=== PATIENT | female | born 1940 | race Caucasian/White ===

== ENCOUNTER 2016-11-25 20:04 | Inpatient (IN) | payer MEDICARE ==
[~2016-11-25] VITALS: Ht 170.2 cm; Wt 77.0 kg
[~2016-11-25 20:04] MED LIST: CHOL1CAP6 PO; CITRTAB7 PO; ENOX40P SQ; FISH1000 PO; LANO0.2510 PO; PROBCAP PO; TAB-TAB PO; VITA500T10 PO; WARF-20 PO
[2016-11-25 20:10] VITALS: BP 112/65; PULSE 88; RESP 16; TEMP 97.6; O2SAT 98
[2016-11-25] MEDS ORDERED: SODIUM CHLORIDE 0.9% FLUSH 10 ML FLUSH IV FLUSH PRN (20:30)
[2016-11-25] MEDS ORDERED: ONDANSETRON HCL 4 MG/2 ML VIAL IVP ONE (20:30)
[2016-11-25] MEDS ORDERED: MORPHINE SULFATE 4 MG/ML INJ IV PUSH ONE (20:30)
--- NOTE | 2016-11-25 20:38 | PD ---
HPI . Abdominal pain Chief Complaint: GI Complaint Time Seen by Provider: 20:18 Travel History International Travel<30 days: No Contact w/Intl Traveler<30days: No History of Present Illness HPI Patient presents with the chief complaint of lower abdominal pain. Onset was this morning. She states that it started by just feeling that her pants were too tight. She has become progressively more bloated feeling as the day has gone on. She has developed nausea and vomited shortly after presentation to us. She states her last normal bowel movement was this evening. She describes her abdominal pain as spasms. PFSH Past Medical History Arthritis: No Cancer: No Cardiovascular Problems: Yes (ATRIAL FIBRILLATION) High Cholesterol: Yes Cerebrovascular Accident: Yes (mar 2012) Diabetes: No Diverticulitis: Yes Endocrine: No Gastrointestinal Disorders: Yes ( HISTORY ILEOSTOMY, COLOSTOMY - CLOSED 08/14; DIVERTICULITIS) GERD: Yes Genitourinary: No Hepatitis: No Hiatal Hernia: No Immune Disorder: No Musculoskeletal: No Neurologic: Yes (STROKE 03/15) Psychiatric: No Reproductive: No Respiratory: No Thyroid Disease: No Ulcer: No Menopausal: Yes Past Surgical History Abdominal Surgery: Yes (APPENDECTOMY; 03/15 COLON SURGERY-ILEOSTOMY,COLOSTOMY; COLON RESECTION 2012) AICD: No Appendectomy: Yes Body Medical Devices: NONE Joint Replacement: No Neurologic Surgery: Yes Pacemaker: No Other Surgery: Yes Social History Alcohol Use: Yes (GLASS WINE DAILY) Tobacco Use: No Substance Use: No Allergies-Medications (Allergen,Severity, Reaction): Coded Allergies: *MDRO Multi-Drug Resistant Organism (Unverified Allergy, Unknown, 03/07/14) MRSA 2013 Reported Meds & Prescriptions Reported Meds & Active Scripts Active Reported Lovenox (Enoxaparin Sodium) 40 Mg/0.4 Ml Inj 40 Mg SQ BID 5 Days UNGRADUATED PREFILLED SYRINGE USE UNTIL INR 2.0 Probiotic Colon Support (Probiotic Product) Support Cap 1 Tab PO DAILY Warfarin Sodium 4 mg (Warfarin Sodium) 4 Mg Tab 1 Tab PO DAILY@1600 Vitamin C (Ascorbic Acid) 500 Mg Tab 500 Mg PO DAILY Vitamin D-3 (Cholecalciferol) 1,000 Unit Tab 1,000 Unit PO DAILY Multivitamin (Multivitamins) 1 Tab Tab 1 Tab PO DAILY Citracal + D3 Maximum (Calcium Citrate/Cholecalciferol) Tab 1 Tab PO DAILY Fish Oil 1,000 Mg Cap 1,000 Mg PO DAILY Lanoxin (Digoxin) 0.25 Mg Tab 0.25 Mg PO DAILY Review of Systems Except as stated in HPI: all other systems reviewed are Neg General / Constitutional: No: Fever, Chills Respiratory: No: Shortness of Breath Gastrointestinal: Positive: Nausea, Vomiting, Abdominal Pain, No: Diarrhea, Constipation Genitourinary: No: Urgency, Frequency, Dysuria Physical Exam Narrative GENERAL: Patient is awake and alert. She doesn't look like she feels very well. SKIN: Warm and dry. HEAD: Atraumatic. Normocephalic. EYES: Pupils equal and round. Extraocular movements are intact. ENT: No nasal bleeding or discharge. Mucous membranes pink and moist. NECK: Trachea midline. Neck is supple. CARDIOVASCULAR: Regular rate and rhythm. Heart sounds are normal. RESPIRATORY: No accessory muscle use. Lungs clear with full air movement throughout. GASTROINTESTINAL: Abdomen soft. Diffuse lower abdominal tenderness. Abdomen is distended. MUSCULOSKELETAL: No obvious deformities. No edema. NEUROLOGICAL: Awake and alert. No obvious cranial nerve deficits. Motor grossly within normal limits. Normal speech. PSYCHIATRIC: Appropriate mood and affect; insight and judgment normal. Data Data Last Documented VS Vital Signs Date Time Temp Pulse Resp B/P Pulse Ox O2 Delivery O2 Flow Rate FiO2 11/25/16 21:24 18 11/25/16 20:10 97.6 88 112/65 98 Orders Complete Blood Count With Diff (11/25/16 20:20) Comprehensive Metabolic Panel (11/25/16 20:20) Lipase (11/25/16 20:20) Lactic Acid (11/25/16 20:20) Urinalysis - C+S If Indicated (11/25/16 20:20) Ct Abd/Pel W Iv Contrast(Rout) (11/25/16 20:20) Iv Access Insert/Monitor (11/25/16 20:20) Morphine Inj (Morphine Inj) (11/25/16 20:30) Ondansetron Inj (Zofran Inj) (11/25/16 20:30) Sodium Chloride 0.9% Flush (Ns Flush) (11/25/16 20:30) Electrocardiogram (11/25/16 20:20) Iohexol 350 Inj (Omnipaque 350 Inj) (11/25/16 21:32) Insert Ng Tube (11/25/16 22:15) Consent (11/25/16 22:27) Ondansetron Inj (Zofran Inj) (11/25/16 22:45) Propofol 200 Mg/20 Ml Inj (Diprivan 200 (11/25/16 23:00) Ct Abd/Pel W/O Iv Contrast (11/25/16 23:24) Labs Laboratory Tests Test 11/25/16 20:40 White Blood Count 12.0 TH/MM3 Red Blood Count 5.13 MIL/MM3 Hemoglobin 14.3 GM/DL Hematocrit 44.8 % Mean Corpuscular Volume 87.3 FL Mean Corpuscular Hemoglobin 27.8 PG Mean Corpuscular Hemoglobin 31.9 % Concent Red Cell Distribution Width 14.2 % Platelet Count 301 TH/MM3 Mean Platelet Volume 9.2 FL Neutrophils (%) (Auto) 73.3 % Lymphocytes (%) (Auto) 16.5 % Monocytes (%) (Auto) 4.7 % Eosinophils (%) (Auto) 1.9 % Basophils (%) (Auto) 3.6 % Neutrophils # (Auto) 8.8 TH/MM3 Lymphocytes # (Auto) 2.0 TH/MM3 Monocytes # (Auto) 0.6 TH/MM3 Eosinophils # (Auto) 0.2 TH/MM3 Basophils # (Auto) 0.4 TH/MM3 CBC Comment DIFF FINAL Differential Comment Sodium Level 142 MEQ/L Potassium Level 3.9 MEQ/L Chloride Level 107 MEQ/L Carbon Dioxide Level 26.9 MEQ/L Anion Gap 8 MEQ/L Blood Urea Nitrogen 25 MG/DL Creatinine 0.88 MG/DL Estimat Glomerular Filtration 63 ML/MIN Rate Random Glucose 111 MG/DL Lactic Acid Level 0.8 mmol/L Calcium Level 9.5 MG/DL Total Bilirubin 0.5 MG/DL Aspartate Amino Transf 19 U/L (AST/SGOT) Alanine Aminotransferase 29 U/L (ALT/SGPT) Alkaline Phosphatase 78 U/L Total Protein 7.3 GM/DL Albumin 3.4 GM/DL Lipase 190 U/L MDM Medical Decision Making Medical Screen Exam Complete: Yes Emergency Medical Condition: Yes Medical Record Reviewed: Yes (her medical history is significant for diverticulitis, previous ileus, atrial fibrillation, asthma. Past surgical history is significant for appendectomy, ventral hernia repair and lysis of adhesions.) Interpretation(s) EKG shows a sinus rhythm with no ST segment elevation or depression. Differential Diagnosis Differential diagnosis of abdominal pain includes but is not limited to gastritis, pancreatitis, hepatitis, gastroenteritis, gallbladder disease, constipation, urinary retention, UTI, peptic ulcer disease, diverticulitis or appendicitis Narrative Course This patient presents with abdominal pain and bloating which started earlier today and which is now associated with nausea followed by vomiting. She reports a normal bowel movement earlier this evening. Nonetheless, my #1 concern is bowel obstruction. An IV has been started. She will be sent for a CT. EKG has been done and basic labs ordered. CBC & BMP Diagram 11/25/16 20:40 Liver function studies are normal. Lipase is normal. Lactic Acid is 0.8. CT: 1. Mildly dilated small bowel loops leading up to a hernia within the right lower anterior abdominal wall which demonstrates a minimal stranding. Surgical consultation 81. 2. Diverticulosis without diverticulitis. 3. Hepatic and renal densities likely cysts. 4. Partially calcified density anterior to the liver along the left lobe, likely benign. I have done conscious sedation. While the patient was sedated, NG tube was placed. On repeat examination, the patient reports her abdominal pain is improved. She does not seem to be as tender. However, she has been medicated with both morphine and propofol. Care is being turned over to Dr. Broussard pending the repeat CT. Procedures Procedure Narrative After the risks and benefits were discussed the following procedure was performed: MODERATE SEDATION: The patient was placed on a telemetry monitor and pulse oximetry. An ambu bag and suction was immediately available at bedside. The patient was monitored by the nurse and respiratory therapy. Oxygen saturation, heart rate and blood pressure were monitored. Procedural sedation was acheived using propofol. The patient was observed until awake and alert. Procedural Sedation time in attendance was 15 minutes. HERNIA REDUCTION: Prior to the attempted reduction, the patient was placed in Trendelenburg with ice on the hernia. Following correct patient identification and confirmation of the appropriate site, the patient was given conscious sedation. Following adequate sedation on the hernia was reduced with compression. Patient tolerated procedure well without complication. Physician Communication Physician Communication Case discussed with Dr. Gomez. He has asked for a repeat CT following reduction of ventral hernia. Disposition will depend upon the repeat CT. That is, if the hernia has not been adequately reduced, he will take her to surgery tonight. If the hernia is adequately reduced, she will be admitted to medicine with surgical consultation. Diagnosis Primary Impression: Small bowel obstruction Additional Impression: Ventral hernia Qualified Code: K43.6 - Ventral hernia with obstruction and without gangrene Admitting Information Admitting Physician Requests: Admit Condition: Stable Tg Rodrigues MD Nov 25, 2016 20:38
[2016-11-25 20:54] LABS: AUTOMATED NEUTROPHIL # 8.8 TH/MM3 (1.8-7.7); BASOPHIL # 0.4 TH/MM3 (0-0.2); BASOPHIL % 3.6 % (0.0-2.0); EOSINOPHIL # 0.2 TH/MM3 (0-0.4); EOSINOPHIL % 1.9 % (0.0-4.0); HEMATOCRIT 44.8 % (35.0-46.0); LYMPH % 16.5 % (9.0-44.0); MEAN CELL VOLUME 87.3 FL (80.0-100.0); MEAN CORPUSCULAR HEMOGLOBIN 27.8 PG (27.0-34.0); MEAN CORPUSCULAR HGB CONC 31.9 % (32.0-36.0); MONO % 4.7 % (0.0-8.0); NEUT % 73.3 % (16.0-70.0); PLATELET COUNT 301 TH/MM3 (150-450); RED BLOOD COUNT 5.13 MIL/MM3 (4.00-5.30); RED CELL DISTRIBUTION WIDTH 14.2 % (11.6-17.2)
[2016-11-25 20:56] LABS: HEMO FLAGS DIFF FINAL
[2016-11-25 21:03] LABS: CHLORIDE 107 MEQ/L (98-107); POTASSIUM 3.9 MEQ/L (3.5-5.1); SODIUM (NA) 142 MEQ/L (136-145)
[2016-11-25 21:07] LABS: ANION GAP 8 MEQ/L (5-15); BICARBONATE 26.9 MEQ/L (21.0-32.0); BLOOD UREA NITROGEN 25 MG/DL (7-18)
[2016-11-25 21:10] LABS: ALT (GPT) 29 U/L (10-53); AST (GOT) 19 U/L (15-37); GLOMERULAR FILTRATION RATE 63 ML/MIN (>89)
[2016-11-25 21:12] LABS: TOTAL BILIRUBIN ADULT 0.5 MG/DL (0.2-1.0)
[2016-11-25 21:13] LABS: ALKALINE PHOSPHATASE 78 U/L (45-117)
[2016-11-25 21:30] VITALS: BP 144/58; PULSE 80; RESP 18; O2SAT 95
[2016-11-25] MEDS ORDERED: IOHEXOL 350 MG/ML 10 ML VIAL (for RAD DIAG) IV ONE (21:32)
--- NOTE | 2016-11-25 22:10 | RADRPT ---
EXAM DATE/TIME: 11/25/2016 21:19 [facility] COMPARISON: CT ABDOMEN & PELVIS W CONTRAST, September 24, 2013, 4:10. INDICATIONS : Lower abdominal pain. Nausea. IV CONTRAST: 100 cc Omnipaque 350 (iohexol) IV ORAL CONTRAST: No oral contrast ingested. RADIATION DOSE: 17.49 CTDIvol (mGy) MEDICAL HISTORY : Diverticulitis. Gastroesophageal reflux disease. Cerebrovascular disease. SURGICAL HISTORY : Appendectomy. Colon resection. ENCOUNTER: Initial ACUITY: 1 day PAIN SCALE: 8/10 LOCATION: Bilateral lower quadrant TECHNIQUE: Volumetric scanning of the abdomen and pelvis was performed. Using automated exposure control and ad justment of the mA and/or kV according to patient size, radiation dose was kept as low as reasonably achievable to obtain optimal diagnostic quality images. DICOM format image data is available electro nically for review and comparison. FINDINGS: LOWER LUNGS: The visualized lower lungs are clear. LIVER: Homogeneous density without lesion. There is no dilation of the biliary tree. No calcified gallston es. Hepatic low densities. Small calcified density anterior to the liver capsule along the left lobe. SPLEEN: Normal size without lesion. PANCREAS: Within normal limits. KIDNEYS: Normal in size and shape. There is no mass, stone or hydronephrosis. Bilateral renal cysts. ADRENAL GLANDS: Within normal limits. VASCULAR: There is no aortic aneurysm. BOWEL/MESENTERY: There are some mildly prominent small bowel loops leading up to a hernia within the anterior abdomina l wall just to the right of midline inferior to the umbilicus. There is minimal stranding within the hernia. Scattered diverticulosis.. There is no free intraperitoneal air or fluid. ABDOMINAL WALL: Small hernia containing small bowel loops in the infraumbilical region to the right of midline. Small fat-containing abdominal wall hernia more superiorly in the right abdomen.. RETROPERITONEUM: There is no lymphadenopathy. BLADDER: No wall thickening or mass. REPRODUCTIVE: Within normal limits. INGUINAL: There is no lymphadenopathy or hernia. MUSCULOSKELETAL: Within normal limits for patient age. CONCLUSION: 1. Mildly dilated small bowel loops leading up to a hernia within the right lower anterior abdominal wall which demonstrates a minimal stranding. Surgical consultation 81. 2. Diverticulosis without diverticulitis. 3. Hepatic and renal densities likely cysts. 4. Partially calcified density anterior to the liver along the left lobe, likely benign. Francis Cho MD on November 25, 2016 at 22:03 Board Certified Radiologist. This report was verified electronically.
[2016-11-25] MEDS ORDERED: ONDANSETRON HCL 4 MG/2 ML VIAL IV PUSH ONE (22:45)
[2016-11-25 23:00] VITALS: O2SAT 97
[2016-11-25] MEDS ORDERED: PROPOFOL 200 MG/20 ML AMP IV ONE (23:00)
[2016-11-26] VITALS (13 sets, daily range): BP systolic 140–174; BP diastolic 60–71; PULSE 70–81; RESP 16–19; TEMP 97.1–98.5; O2SAT 92–97
--- NOTE | 2016-11-26 00:20 | RADRPT ---
EXAM DATE/TIME: 11/25/2016 23:48 [facility] COMPARISON: CT ABDOMEN & PELVIS W CONTRAST, November 25, 2016, 21:19. INDICATIONS : Post hernia reduction. Obstruction. ORAL CONTRAST: No oral contrast ingested. RADIATION DOSE: 17.77 CTDIvol (mGy) MEDICAL HISTORY : Diverticulitis. Gastroesophageal reflux disease. Cerebrovascular disease. SURGICAL HISTORY : Appendectomy. Colon resection. ENCOUNTER: Subsequent ACUITY: 1 day PAIN SCALE: 8/10 LOCATION: Right lower quadrant TECHNIQUE: Volumetric scanning of the abdomen and pelvis was performed. Using automated exposure control and ad justment of the mA and/or kV according to patient size, radiation dose was kept as low as reasonably achievable to obtain optimal diagnostic quality images. DICOM format image data is available electro nically for review and comparison. FINDINGS: LOWER LUNGS: The visualized lower lungs are clear. LIVER: Homogeneous density without concerning lesion. There are 3 cysts in the liver measuring up to 2.6 cm. There is no dilation of the biliary tree. No calcified gallstones. SPLEEN: Normal size without lesion. PANCREAS: Within normal limits. KIDNEYS: Normal in size and shape. There is no mass, stone, or hydronephrosis. There is a stable left renal c yst. ADRENAL GLANDS: Within normal limits. VASCULAR: There is no aortic aneurysm. There is severe atherosclerotic disease. BOWEL/MESENTERY: Stomach demonstrates no abnormality. Nasogastric tube tip is in the proximal stomach. Proximal small bowel is normal. There is a segment of small bowel which again extends into a right lower quadrant an terior abdominal wall hernia just to the right of midline. The small bowel proximal to this is mildly distended measuring up to 2.3 cm. There is colonic diverticulosis. There is been prior surgery at th e colorectal junction. No free air or free fluid. ABDOMINAL WALL: Stable anterior abdominal wall hernia in the right lower quadrant. RETROPERITONEUM: There is no lymphadenopathy. BLADDER: No wall thickening or mass. REPRODUCTIVE: Within normal limits. INGUINAL: There is no lymphadenopathy or hernia. MUSCULOSKELETAL: There are degenerative changes of the spine. CONCLUSION: 1. The right lower quadrant anterior abdominal wall hernia is stable. It still contains a segment of small bowel with mild dilatation of the small bowel proximal to this area. 2. Otherwise, stable exam. Portillo Baker MD on November 26, 2016 at 0:12 Board Certified Radiologist. This report was verified electronically.
[2016-11-26] MEDS ORDERED: DIGO0.12 PO (00:32)
[2016-11-26] MEDS ORDERED: WARF-20 PO (00:33)
[2016-11-26] MEDS ORDERED: VITA100036 PO (00:34)
[2016-11-26] MEDS ORDERED: VITA250T3 PO (00:34)
[2016-11-26] MEDS ORDERED: CITRTAB7 PO (00:35)
[2016-11-26] MEDS ORDERED: LACTCAP8 PO (00:35)
[2016-11-26] MEDS ORDERED: OMEGCAP PO (00:36)
[2016-11-26] MEDS ORDERED: MULTTAB67 PO (00:36)
--- NOTE | 2016-11-26 00:38 | PD ---
Physical Exam Narrative Patient was seen by ED physician and signed out to me. Data Data Last Documented VS Vital Signs Date Time Temp Pulse Resp B/P Pulse Ox O2 Delivery O2 Flow Rate FiO2 11/25/16 23:00 97 2.00 11/25/16 21:24 18 11/25/16 20:10 97.6 88 112/65 Orders Complete Blood Count With Diff (11/25/16 20:20) Comprehensive Metabolic Panel (11/25/16 20:20) Lipase (11/25/16 20:20) Lactic Acid (11/25/16 20:20) Urinalysis - C+S If Indicated (11/25/16 20:20) Ct Abd/Pel W Iv Contrast(Rout) (11/25/16 20:20) Iv Access Insert/Monitor (11/25/16 20:20) Morphine Inj (Morphine Inj) (11/25/16 20:30) Ondansetron Inj (Zofran Inj) (11/25/16 20:30) Sodium Chloride 0.9% Flush (Ns Flush) (11/25/16 20:30) Electrocardiogram (11/25/16 20:20) Iohexol 350 Inj (Omnipaque 350 Inj) (11/25/16 21:32) Insert Ng Tube (11/25/16 22:15) Consent (11/25/16 22:27) Ondansetron Inj (Zofran Inj) (11/25/16 22:45) Propofol 200 Mg/20 Ml Inj (Diprivan 200 (11/25/16 23:00) Ct Abd/Pel W/O Iv Contrast (11/25/16 23:24) Prothrombin Time / Inr (Pt) (11/26/16 00:55) Act Partial Throm Time (Ptt) (11/26/16 00:55) Digoxin (11/26/16 00:55) Admit Order (Ed Use Only) (11/26/16 01:14) Labs Laboratory Tests Test 11/25/16 11/26/16 20:40 01:15 White Blood Count 12.0 TH/MM3 Red Blood Count 5.13 MIL/MM3 Hemoglobin 14.3 GM/DL Hematocrit 44.8 % Mean Corpuscular Volume 87.3 FL Mean Corpuscular Hemoglobin 27.8 PG Mean Corpuscular Hemoglobin 31.9 % Concent Red Cell Distribution Width 14.2 % Platelet Count 301 TH/MM3 Mean Platelet Volume 9.2 FL Neutrophils (%) (Auto) 73.3 % Lymphocytes (%) (Auto) 16.5 % Monocytes (%) (Auto) 4.7 % Eosinophils (%) (Auto) 1.9 % Basophils (%) (Auto) 3.6 % Neutrophils # (Auto) 8.8 TH/MM3 Lymphocytes # (Auto) 2.0 TH/MM3 Monocytes # (Auto) 0.6 TH/MM3 Eosinophils # (Auto) 0.2 TH/MM3 Basophils # (Auto) 0.4 TH/MM3 CBC Comment DIFF FINAL Differential Comment Sodium Level 142 MEQ/L Potassium Level 3.9 MEQ/L Chloride Level 107 MEQ/L Carbon Dioxide Level 26.9 MEQ/L Anion Gap 8 MEQ/L Blood Urea Nitrogen 25 MG/DL Creatinine 0.88 MG/DL Estimat Glomerular Filtration 63 ML/MIN Rate Random Glucose 111 MG/DL Lactic Acid Level 0.8 mmol/L Calcium Level 9.5 MG/DL Total Bilirubin 0.5 MG/DL Aspartate Amino Transf 19 U/L (AST/SGOT) Alanine Aminotransferase 29 U/L (ALT/SGPT) Alkaline Phosphatase 78 U/L Total Protein 7.3 GM/DL Albumin 3.4 GM/DL Lipase 190 U/L Prothrombin Time 22.7 SEC Prothromb Time International 2.0 RATIO Ratio Activated Partial 36.1 SEC Thromboplast Time [facility] Supervised Visit with JOSÉ LUIS: No Narrative Course INR 2.0. Patient was given vitamin K 10 mg subcutaneous. Repeat INR in a.m. Diagnosis Primary Impression: Small bowel obstruction Additional Impression: Ventral hernia Qualified Code: K43.6 - Ventral hernia with obstruction and without gangrene Condition: Stable Hector Broussard MD Nov 26, 2016 00:38
[2016-11-26] MEDS ORDERED: SODIUM CHLORIDE 0.9% FLUSH 10 ML FLUSH IVF PRN (01:30)
[2016-11-26] MEDS ORDERED: ONDANSETRON HCL 4 MG/2 ML VIAL IV PRN (01:30)
[2016-11-26 02:02] LABS: APTT (PATIENT) 36.1 SEC (24.3-30.1); PROTHROMBIN TIME - PATIENT 22.7 SEC (9.8-11.6)
[2016-11-26] MEDS ORDERED: PHYTONADIONE 10 MG/ML VIAL SQ ONE (02:15)
[2016-11-26] MEDS: SODIUM CHLOR 0.9% 1000 ML INJ 1,000 ML IV SCH ×3 (02:28→21:24)
[2016-11-26 04:16] LABS: BLOOD, URINE NEG (NEG); GLUCOSE,URINE NEG (NEG); KETONE, URINE 15 mg/dL (NEG); NITRITE,URINE NEG (NEG); PH, URINE 5.5 (5.0-8.5)
[2016-11-26 04:28] LABS: URINE COLOR YELLOW (YELLW/STRAW)
[2016-11-26 04:29] LABS: BACTERIA, URINE OCC /hpf; COMMENT (UR) CULT NOT INDICATED; CULTURE IF INDICATED CULT NOT INDICATED; MUCUS URINE OCC /lpf (OCC); SQUAMOUS EPITHELIAL CELL URINE 0-5 /hpf (0-5)
[2016-11-26] MEDS: SODIUM CHLORIDE 0.9% FLUSH 10 ML FLUSH IV FLUSH SCH ×2 (07:40→21:00)
--- NOTE | 2016-11-26 09:16 | PD.CONS ---
HPI Service General Surgery Consult Requested By Reason for Consult ventral hernia causing sbo Primary Care Physician Lanre Gamble MD History of Present Illness The patient is a 76-year-old female who developed abdominal distention and pain yesterday associated with nausea and vomiting. She noticed a bulge in her right lower abdomen. She actually felt a bulge about 2 weeks ago when she was doing some activity. She has h/o ex lap, sigmoid resection, Edwin's, mucous fistula, and diverting ileostomy for obstructing perforated diverticulitis with secondary cecal perforation in 2011. She subsequently underwent reversal. She has undergone two separate ventral hernia repairs with mesh in 2013. At some point she had a wound infection, although I do not think this was associated with mesh. She was evaluated in the emergency department and noted to have leukocytosis and a CT scan of the abdomen and pelvis showed a partial small bowel obstruction with incarcerated ventral hernia with small bowel. NG tube was placed and attempt was made for reduction. Unfortunately, the hernia remained in place on follow-up CT. She has a history of atrial fibrillation and CVA and is anticoagulated on warfarin. Review of Systems Constitutional: DENIES: Fever, Chills Eyes: DENIES: Eye inflammation, Eye pain Ears, nose, mouth, throat: DENIES: Oral lesions, Throat pain Respiratory: DENIES: Cough, Shortness of breath Cardiovascular: DENIES: Chest pain, Palpitations Gastrointestinal: COMPLAINS OF: Abdominal pain, Nausea, Vomiting Musculoskeletal: DENIES: Stiffness, Joint Swelling Integumentary: DENIES: Pruritus, Rash Neurologic: DENIES: Paresthesias, Seizures Past Family Social History Past Medical History CVA Atrial fibrillation Perforated sigmoid diverticulitis with secondary cecal perforation Past Surgical History Appendectomy as a child Exploratory laparotomy with sigmoid resection as above Colostomy and ileostomy reversal Ventral hernia repair 2 with mesh Reported Medications Reported Meds & Active Scripts Active Reported Multiple Vitamin 1 Tab 1 Tab PO DAILY [place]-3 Fish Oil/Vitamin (Fish Oil-Cholecalciferol) 1,000-1,000 Mg Cap 1 Cap PO DAILY Probiotic (Lactobacillus Acidophilus) 1 Cap Cap 1 Cap PO DAILY Citracal + D3 Maximum (Calcium Citrate-Vitamin D) 315-250 Mg-Unit Tab 1 Tab PO DAILY Vitamin D3 (Cholecalciferol) 1,000 Unit Cap 1,000 Units PO DAILY Vitamin C (Ascorbic Acid) 250 Mg Tab 250 Mg PO Warfarin 4 Mg Tab 4 Mg PO DAILY Digoxin 0.125 Mg Tab 0.125 Mg PO DAILY Allergies: Coded Allergies: *MDRO Multi-Drug Resistant Organism (Unverified Adverse Reaction, Unknown , MRSA, 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 Ordered Medications Current Medications Medications (Trade) Dose Ordered Sig/Cecelia Route Start Time Stop Time Status Last Admin (Zofran Inj) 4 mg Q6H PRN IV 11/26/16 01:30 11/26/16 04:18 (Tylenol) 650 mg Q4H PRN PO 11/26/16 01:30 (NS Flush) 2 ml BID IV FLUSH 11/26/16 09:00 Sodium Chloride 2 ml 2 ml UNSCH PRN IVF 11/26/16 01:30 (NS 1000 ml Inj) 1,000 ml @ 100 mls/hr Q10H IV 11/26/16 01:30 11/26/16 02:28 Family History Noncontributory Social History No alcohol or tobacco use. Her is present with her. Physical Exam Vital Signs Vital Signs Date Time Temp Pulse Resp B/P Pulse Ox O2 Delivery O2 Flow Rate FiO2 11/26/16 08:22 92 21 11/26/16 06:00 97.2 72 19 140/65 92 11/26/16 02:30 97.6 76 18 163/65 97 Nasal Cannula 2 11/26/16 02:00 70 18 166/67 95 Nasal Cannula 2 11/26/16 01:34 95 Nasal Cannula 2.00 11/26/16 01:30 72 18 161/66 96 Nasal Cannula 2 11/26/16 01:00 72 18 164/60 96 Nasal Cannula 2 11/25/16 23:00 97 2.00 11/25/16 21:30 80 18 144/58 95 Room Air 11/25/16 21:24 18 11/25/16 20:10 97.6 88 16 112/65 98 Physical Exam GENERAL: Awake and alert. No acute distress. Cooperative. HEAD: Normocephalic. Atraumatic. EYES: Pupils equal round and reactive to light bilaterally. No scleral icterus. ENT: Moist oral mucosa. NG tube in place. CHEST: Lungs clear to auscultation bilaterally with no wheezing or rhonchi. No respiratory distress. CARDIOVASCULAR: Regular rate and rhythm. ABDOMEN: Round. Healed lower transverse incision and left abdominal scar from previous colostomy. Ventral hernia just to the right and inferior of the umbilicus at the site of previous incision which was reducible and the fascial defect seems about 3-4 cm. I think this is the site of her obstruction. EXTREMITIES: No cyanosis or edema. SKIN: Warm, dry, nonjaundiced. Laboratory Laboratory Tests Test 11/25/16 11/26/16 11/26/16 20:40 01:15 03:45 White Blood Count 12.0 Red Blood Count 5.13 Hemoglobin 14.3 Hematocrit 44.8 Mean Corpuscular Volume 87.3 Mean Corpuscular Hemoglobin 27.8 Mean Corpuscular Hemoglobin 31.9 Concent Red Cell Distribution Width 14.2 Platelet Count 301 Mean Platelet Volume 9.2 Neutrophils (%) (Auto) 73.3 Lymphocytes (%) (Auto) 16.5 Monocytes (%) (Auto) 4.7 Eosinophils (%) (Auto) 1.9 Basophils (%) (Auto) 3.6 Neutrophils # (Auto) 8.8 Lymphocytes # (Auto) 2.0 Monocytes # (Auto) 0.6 Eosinophils # (Auto) 0.2 Basophils # (Auto) 0.4 CBC Comment DIFF FINAL Differential Comment Sodium Level 142 Potassium Level 3.9 Chloride Level 107 Carbon Dioxide Level 26.9 Anion Gap 8 Blood Urea Nitrogen 25 Creatinine 0.88 Estimat Glomerular Filtration 63 Rate Random Glucose 111 Lactic Acid Level 0.8 Calcium Level 9.5 Total Bilirubin 0.5 Aspartate Amino Transf 19 (AST/SGOT) Alanine Aminotransferase 29 (ALT/SGPT) Alkaline Phosphatase 78 Total Protein 7.3 Albumin 3.4 Lipase 190 Prothrombin Time 22.7 Prothromb Time International 2.0 Ratio Activated Partial 36.1 Thromboplast Time Digoxin Level 0.6 Urine Color YELLOW Urine Turbidity CLEAR Urine pH 5.5 Urine Specific [place] 1.035 Urine Protein NEG Urine Glucose (UA) NEG Urine Ketones 15 Urine Occult Blood NEG Urine Nitrite NEG Urine Bilirubin NEG Urine Leukocyte Esterase NEG Urine Squamous Epithelial 0-5 Cells Urine Bacteria OCC Urine Mucus OCC Microscopic Urinalysis Comment CULT NOT INDICATED Result Diagram: 11/25/16203911/25/162039 Imaging Last Impressions Abdomen/Pelvis CT 11/25/16 0568 Signed Impressions: Service Date/Time: Friday, November 25, 2016 23:48 - CONCLUSION: 1. The right lower quadrant anterior abdominal wall hernia is stable. It still contains a segment of small bowel with mild dilatation of the small bowel proximal to this area. 2. Otherwise, stable exam. Portillo Baker MD Assessment and Plan Assessment and Plan 76yo F with incarcerated ventral hernia causing SBO, at least partial. I think that I was able to reduce the hernia at bedside. Recommend continue NGT , repeat labs and exam in the am . Ideally, would not operate on her during this hospitalization but she would probably benefit from repair in the near future. I notified Dr. Saenz of her presence and she is ok with me taking care of her at this time. JasonJosé Miguel MD Nov 26, 2016 09:16
[2016-11-26 12:01] LABS: PROTHROMBIN TIME - PATIENT 23.1 SEC (9.8-11.6)
--- NOTE | 2016-11-26 12:37 | HHI.HP ---
HPI Service [facility] Hospitalists Primary Care Physician Lanre Gamble MD Admission Diagnosis Incarcerated abdominal hernia. Small bowel obstruction. Chief Complaint: abdomen pain Travel History International Travel<30 Days: No Contact w/Intl Traveler <30 Da: No Traveled to Known Affected Are: No History of Present Illness Pt with hx afib, cva, complicated diverticulitis presented with sudden onset lower quad pain then n/v. Found to have incarcerated ventral hernia. Reduced by gen surg and ngt to liws placed. repeat ct a/p performed. currently feeling better and eager to try po. Review of Systems Other abdomen pain Past Family Social History Past Medical History complicated diverticulitis with bowel narrowing, perforation and peritonitis, status post ileostomy and colostomy. subsequent ventral hernias.. ostomy reversal. 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, right facial droop and right upper extremity weakness Atrial fibrillation htn Reported Medications Reported Meds & Active Scripts Active Reported Multiple Vitamin 1 Tab 1 Tab PO DAILY [place]-3 Fish Oil/Vitamin (Fish Oil-Cholecalciferol) 1,000-1,000 Mg Cap 1 Cap PO DAILY Probiotic (Lactobacillus Acidophilus) 1 Cap Cap 1 Cap PO DAILY Citracal + D3 Maximum (Calcium Citrate-Vitamin D) 315-250 Mg-Unit Tab 1 Tab PO DAILY Vitamin D3 (Cholecalciferol) 1,000 Unit Cap 1,000 Units PO DAILY Vitamin C (Ascorbic Acid) 250 Mg Tab 250 Mg PO Warfarin 4 Mg Tab 4 Mg PO DAILY Digoxin 0.125 Mg Tab 0.125 Mg PO DAILY Allergies: Coded Allergies: *MDRO Multi-Drug Resistant Organism (Unverified Adverse Reaction, Unknown , MRSA, 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 Ordered Medications Family History nc Social History no etoh/tob Physical Exam Vital Signs nad heart reg lung cta abd s/bs/rlq reducible hernia Vital Signs Date Time Temp Pulse Resp B/P Pulse Ox O2 Delivery O2 Flow Rate FiO2 11/26/16 08:22 92 21 11/26/16 08:00 97.6 79 16 150/65 92 11/26/16 06:00 97.2 72 19 140/65 92 11/26/16 02:30 97.6 76 18 163/65 97 Nasal Cannula 2 11/26/16 02:00 70 18 166/67 95 Nasal Cannula 2 11/26/16 01:34 95 Nasal Cannula 2.00 11/26/16 01:30 72 18 161/66 96 Nasal Cannula 2 11/26/16 01:00 72 18 164/60 96 Nasal Cannula 2 11/25/16 23:00 97 2.00 11/25/16 21:30 80 18 144/58 95 Room Air 11/25/16 21:24 18 11/25/16 20:10 97.6 88 16 112/65 98 Laboratory Laboratory Tests Test 11/25/16 11/26/16 11/26/16 11/26/16 20:40 01:15 03:45 11:19 White Blood Count 12.0 Red Blood Count 5.13 Hemoglobin 14.3 Hematocrit 44.8 Mean Corpuscular Volume 87.3 Mean Corpuscular Hemoglobin 27.8 Mean Corpuscular Hemoglobin 31.9 Concent Red Cell Distribution Width 14.2 Platelet Count 301 Mean Platelet Volume 9.2 Neutrophils (%) (Auto) 73.3 Lymphocytes (%) (Auto) 16.5 Monocytes (%) (Auto) 4.7 Eosinophils (%) (Auto) 1.9 Basophils (%) (Auto) 3.6 Neutrophils # (Auto) 8.8 Lymphocytes # (Auto) 2.0 Monocytes # (Auto) 0.6 Eosinophils # (Auto) 0.2 Basophils # (Auto) 0.4 CBC Comment DIFF FINAL Differential Comment Sodium Level 142 Potassium Level 3.9 Chloride Level 107 Carbon Dioxide Level 26.9 Anion Gap 8 Blood Urea Nitrogen 25 Creatinine 0.88 Estimat Glomerular Filtration 63 Rate Random Glucose 111 Lactic Acid Level 0.8 Calcium Level 9.5 Total Bilirubin 0.5 Aspartate Amino Transf 19 (AST/SGOT) Alanine Aminotransferase 29 (ALT/SGPT) Alkaline Phosphatase 78 Total Protein 7.3 Albumin 3.4 Lipase 190 Prothrombin Time 22.7 23.1 Prothromb Time International 2.0 2.0 Ratio Activated Partial 36.1 Thromboplast Time Digoxin Level 0.6 Urine Color YELLOW Urine Turbidity CLEAR Urine pH 5.5 Urine Specific [place] 1.035 Urine Protein NEG Urine Glucose (UA) NEG Urine Ketones 15 Urine Occult Blood NEG Urine Nitrite NEG Urine Bilirubin NEG Urine Leukocyte Esterase NEG Urine Squamous Epithelial 0-5 Cells Urine Bacteria OCC Urine Mucus OCC Microscopic Urinalysis Comment CULT NOT INDICATED Result Diagram: 11/25/16203911/25/162039 Assessment and Plan Problem List: (1) Small bowel obstruction Status: Acute Plan: Pt presented with incarcerated hernia of ventral hernia. reduced by Dr Gomez. Currently regaining some bowel function ivf and po/diet per gen surg ambulate ngt liws per gen surg resume her rate control meds if ok with gen surg coumadin on hold and ED gave vit k. (2) Ventral hernia Status: Chronic (3) CVA (cerebral vascular accident) Status: Resolved (4) Afib Status: Chronic Physician Certification 2 Midnight Certification Type: Admission for Inpatient Services Order for Inpatient Services 3The services are ordered in accordance with Medicare regulations or non- Medicare payer requirements, as applicable. In the case of services not specified as inpatient-only, they are appropriately provided as inpatient services in accordance with the 2-midnight benchmark. Estimated LOS (days): 3 3 days is the estimated time the patient will need to remain in the hospital, assuming treatment plan goals are met and no additional complications. Post-Hospital Plan: Home Problem Qualifiers (1) Ventral hernia: Qualified Code: K43.6 - Ventral hernia with obstruction and without gangrene Teja Jarrett MD Nov 26, 2016 12:37
[2016-11-26] MEDS: DIGOXIN 0.125 MG TAB PO SCH (13:18)
[2016-11-26] MEDS: ACETAMINOPHEN 325 MG TAB PO PRN (17:06)
--- NOTE | 2016-11-26 21:01 | EKG ---
Date Performed: 11/25/2016 Time Performed: 20:33:15 PTAGE: 76 years EKG: Sinus rhythm POSSIBLE RIGHT VENTRICULAR CONDUCTION DELAY MINIMAL ST DEPRESSION BORDERLINE ECG PREVIOUS TRACING : 09/24/2013 10.17 Compared to prior tracing no significant change DOCTOR: Mary Benitez Interpretating Date/Time 11/26/2016 20:59:55
[2016-11-27] VITALS (8 sets, daily range): BP systolic 136–176; BP diastolic 56–72; PULSE 69–92; RESP 18–20; TEMP 97.5–98.8; O2SAT 93–95
[2016-11-27] MEDS: ACETAMINOPHEN 325 MG TAB PO PRN ×2 (01:04→07:39)
[2016-11-27] MEDS: SODIUM CHLOR 0.9% 1000 ML INJ 1,000 ML IV SCH (07:30)
[2016-11-27] MEDS: DIGOXIN 0.125 MG TAB PO SCH (07:38)
[2016-11-27] MEDS: SODIUM CHLORIDE 0.9% FLUSH 10 ML FLUSH IV FLUSH SCH ×2 (07:38→21:00)
--- NOTE | 2016-11-27 11:04 | HHI.PR ---
Subjective Remarks angry pt. wants tele and ngt out. flatus but no bm Objective Vitals heart reg lung cta abd s/bs/nd ext no edema ngt clamped. Vital Signs Date Time Temp Pulse Resp B/P Pulse Ox O2 Delivery O2 Flow Rate FiO2 11/27/16 10:12 94 21 11/27/16 08:11 97.5 78 18 148/64 93 11/27/16 08:00 69 11/27/16 00:20 98.8 76 18 144/63 93 11/26/16 21:08 94 21 11/26/16 20:45 97.1 77 18 160/67 93 11/26/16 20:00 78 11/26/16 16:00 97.9 81 17 161/70 95 11/26/16 12:00 98.5 78 17 174/71 94 11/26/16 11/26/16 11/27/16 15:00 23:00 07:00 Intake Total 474 ml 900 ml Output Total 600 ml Balance 474 ml 300 ml Intake Oral 0 ml 0 ml IV Total 474 ml 900 ml Gastric Drainage Total 600 ml # Voids 1 0 3 # Bowel Movements 0 0 Result Diagram: 11/25/16203911/25/162039 A/P Problem List: (1) Small bowel obstruction Status: Acute Plan: Pt presented with incarcerated hernia of ventral hernia. reduced by Dr Gomez. Currently regaining some bowel function pt was upset. wants ngt and tele out. discuss with gen surg d/c tele and ngt...clears. ambulate (2) Ventral hernia Status: Chronic (3) CVA (cerebral vascular accident) Status: Resolved (4) Afib Status: Chronic Problem Qualifiers (1) Ventral hernia: Qualified Code: K43.6 - Ventral hernia with obstruction and without gangrene Teja Jarrett MD Nov 27, 2016 11:04
[2016-11-27] MEDS ORDERED: BENZOCAINE-MENTHOL (SUGAR FREE) 15 MG-3.6 MG LOZENGE BUCCAL ONE (11:45)
[2016-11-27] MEDS ORDERED: BENZOCAINE-MENTHOL (SUGAR FREE) 15 MG-3.6 MG LOZENGE BUCCAL PRN (11:45)
[2016-11-27] MEDS ORDERED: MAGNESIUM HYDROXIDE SUSP 30 ML CUP PO ONE (12:15)
--- NOTE | 2016-11-27 12:15 | HHI.PR ---
Subjective Subjective Notes Continues to pass flatus. No abdominal pain. NG removed this am. Objective Vitals/I&O Vital Signs Date Time Temp Pulse Resp B/P Pulse Ox O2 Delivery O2 Flow Rate FiO2 11/27/16 10:12 94 21 11/27/16 08:11 97.5 78 18 148/64 11/26/16 02:30 Nasal Cannula 2 Radiology Last Impressions Abdomen/Pelvis CT 11/25/16 1384 Signed Impressions: Service Date/Time: Friday, November 25, 2016 23:48 - CONCLUSION: 1. The right lower quadrant anterior abdominal wall hernia is stable. It still contains a segment of small bowel with mild dilatation of the small bowel proximal to this area. 2. Otherwise, stable exam. Portillo Baker MD Narrative Exam NAD Abd: soft, ventral hernia inf/right of umbilicus intermittently protrudes- I reduced again fairly easily. Defect 3-4 cm A/P Assessment and Plan 76 yo F ventral hernia causing SBO. Hernia reducible now. Low NGT output. Abd nondistended. + flatus. Start soft diet. D/c IVF. Ventral hernia continues to bulge intermittently and I think will continue to cause symptoms. If she tolerates diet and improves, will still probably need repair in the next couple of weeks. Will discuss further whether to stay in hospital and perform early next week or discharge and f/u as outpatient to be performed in next few weeks. She may benefit from lovenox in the meantime rather than coumadin. José Miguel Gomez MD Nov 27, 2016 12:15
[2016-11-28 01:03] VITALS: BP 158/65; PULSE 76; RESP 20; TEMP 97.7; O2SAT 93
[2016-11-28 05:56] VITALS: BP 141/72; PULSE 69; RESP 20; TEMP 97.6; O2SAT 93
[2016-11-28] MEDS: DIGOXIN 0.125 MG TAB PO SCH (07:53)
[2016-11-28] MEDS: SODIUM CHLORIDE 0.9% FLUSH 10 ML FLUSH IV FLUSH SCH (07:54)
--- NOTE | 2016-11-28 08:37 | HHI.PR ---
Subjective Subjective Notes Tolerating diet. + BM. Objective Vitals/I&O Vital Signs Date Time Temp Pulse Resp B/P Pulse Ox O2 Delivery O2 Flow Rate FiO2 11/28/16 05:56 97.6 69 20 141/72 93 11/27/16 17:53 21 11/26/16 02:30 Nasal Cannula 2 Radiology Last Impressions Abdomen/Pelvis CT 11/25/16 0861 Signed Impressions: Service Date/Time: Friday, November 25, 2016 23:48 - CONCLUSION: 1. The right lower quadrant anterior abdominal wall hernia is stable. It still contains a segment of small bowel with mild dilatation of the small bowel proximal to this area. 2. Otherwise, stable exam. Portillo Baker MD Narrative Exam NAD Abd: soft, ventral hernia inf/right of umbilicus intermittently protrudes- I reduced again fairly easily. Defect 3-4 cm A/P Assessment and Plan 76 yo F ventral hernia causing SBO. Hernia reducible now. Recommend dc home today. I will plan lap repair of incisional hernia with mesh on Thursday. She will go to my office this Thursday. Discussed details of the operation with her including possible need for open operation, bowel injury, etc. She will go or present to ED if problems over the weekend. Jason,José Miguel LEGER Nov 28, 2016 08:37
[2016-11-28 08:38] VITALS: BP 130/59; PULSE 72; RESP 18; TEMP 98.9; O2SAT 95
[2016-11-28 11:25] VITALS: O2SAT 95
[2016-11-28 11:30] VITALS: BP 135/61; PULSE 72; RESP 18; TEMP 98.5; O2SAT 94
--- NOTE | 2016-11-28 12:38 | HHI.FF ---
Face to Face Verification Diagnosis: (1) Small bowel obstruction (2) CVA (cerebral vascular accident) (3) Afib (4) Ventral hernia Home Health Nursing Order: Nursing assessment with vital signs Instructions: Pt will need help with Lovenox injections 70mg BID I have seen patient Thais Cabezas on 11/28/16. My clinical findings support the need for the requested home health care services because: Injectable med education/admin I certify that my clinical findings support that this patient is homebound because: Unable to use public transportation Ana Maria Lynn Nov 28, 2016 12:38
[2016-11-28] MEDS ORDERED: ENOX80P SQ (12:39)
--- NOTE | 2016-11-28 12:50 | HHI.DS ---
Discharge Summary Admission Date Nov 26, 2016 at 01:17 Discharge Date: Nov 28, 2016 Admitting Diagnosis Incarcerated abdominal hernia. Small bowel obstruction. (1) Small bowel obstruction Diagnosis: Principal (2) Ventral hernia Diagnosis: Secondary (3) CVA (cerebral vascular accident) Diagnosis: Secondary (4) Afib Diagnosis: Secondary Consultants Dr. José Miguel Gomez - General Surgery Brief History Pt with hx afib, cva, complicated diverticulitis presented with sudden onset lower quad pain then n/v. Found to have incarcerated ventral hernia. Reduced by gen surg and ngt to liws placed. repeat ct a/p performed. currently feeling better and eager to try po. CBC/BMP: 11/25/16203911/25/162039 Significant Findings Laboratory Tests Test 11/25/16 11/26/16 11/26/16 11/26/16 20:40 01:15 03:45 11:19 White Blood Count 12.0 TH/MM3 (4.0-11.0) Mean Corpuscular Hemoglobin 31.9 % Concent (32.0-36.0) Neutrophils (%) (Auto) 73.3 % (16.0-70.0) Basophils (%) (Auto) 3.6 % (0.0-2.0) Neutrophils # (Auto) 8.8 TH/MM3 (1.8-7.7) Basophils # (Auto) 0.4 TH/MM3 (0-0.2) Blood Urea Nitrogen 25 MG/DL (7-18) Estimat Glomerular Filtration 63 ML/MIN (>89) Rate Random Glucose 111 MG/DL (74-106) Prothrombin Time 22.7 SEC 23.1 SEC (9.8-11.6) (9.8-11.6) Activated Partial 36.1 SEC Thromboplast Time (24.3-30.1) Digoxin Level 0.6 NG/ML (0.8-2.0) Urine Ketones 15 mg/dL (NEG) Urine Bacteria OCC /hpf (NONE) Imaging Last Impressions Abdomen/Pelvis CT 11/25/16 2795 Signed Impressions: Service Date/Time: Friday, November 25, 2016 23:48 - CONCLUSION: 1. The right lower quadrant anterior abdominal wall hernia is stable. It still contains a segment of small bowel with mild dilatation of the small bowel proximal to this area. 2. Otherwise, stable exam. Portillo Baker MD Hospital Course Pt is a 76 yo WF with A. fib and hx of CVA who was admitted on 11/25/16 with complaints of abdominal pain. CT Abd/pelvis revealed right lower quadrant anterior abdominal wall hernia containing a segment of small bowel with mild dilatation of the small bowel proximal to this area. General Surgery was consulted and NGT was placed. Pt had clinical improvement with the NGT to LIWS and supportive care. The ventral hernia causing the SBO was noted to be reducible. Her diet was advanced per general surgery and pt remained stable clinically. The ventral hernia continues to bulge intermittently and it was felt that this will continue to cause symptoms. The pt was recommend discharge to home but will be planned for lap repair of incisional hernia with mesh on 12/02/16. She will be seen by Dr. Gomez on 12/01/16 at his office. Pts Coumadin was held at admission in anticipation for possible surgical intervention. She was also given Vitamin K 10meq SQ on 11/26. Her Coumadin will continue to be held in anticipation for outpt surgery next week. We will prescribe Lovenox 70mg BID and she will take her last dose of Thursday morning () with surgery planned for 12/02/16. We will arrange for [facility] to help with the Lovenox injections. Pt Condition on Discharge: Stable Discharge Disposition: Disch w/ Home Health Serv Discharge Instructions DIET: Follow Instructions for: Heart Healthy Diet Activities you can perform: Regular-No Restrictions Follow up Referrals: PCP Follow-up - [address] Lanre Gamble Surgical - 12/01/16 with José Miguel Gomez MD New Medications: Enoxaparin Inj (Lovenox Inj) 80 mg/0.8 ML Syr 70 MG SQ BID Blood Clot Prevention #5 Ref 0 SYRINGE Continued Medications: Cholecalciferol (Vitamin D3) 1,000 Unit Cap 1000 UNITS PO DAILY Nutritional Supplement #1 Ref 0 BOTTLE Digoxin (Digoxin) 0.125 Mg Tab 0.125 MG PO DAILY Regulate Heart Beat #30 Ref 0 TAB Fish Oil-Cholecalciferol ([place]-3 Fish Oil/Vitamin) 1,000-1,000 Mg Cap 1 CAP PO DAILY Nutritional Supplement Ref 0 CAP Lactobacillus Acidophilus (Probiotic) 1 Cap Cap 1 CAP PO DAILY Nutritional Supplement #90 Ref 0 CAP Multiple Vitamin (Multiple Vitamin) 1 Tab 1 TAB PO DAILY Nutritional Supplement Ref 0 TAB Discontinued Medications: Ascorbic Acid (Vitamin C) 250 Mg Tab 250 MG PO Nutritional Supplement Ref 0 TAB Calcium Citrate-Vitamin D (Citracal + D3 Maximum) 315-250 Mg-Unit Tab 1 TAB PO DAILY Calcium Supplement #100 Ref 0 TAB Warfarin (Warfarin) 4 Mg Tab 4 MG PO DAILY Blood Clot Prevention #30 Ref 0 TAB Ana Maria Lynn Nov 28, 2016 12:50 Teja Jarrett MD Nov 28, 2016 21:43
[2016-11-28 13:16] LABS: PROTHROMBIN TIME - PATIENT 11.1 SEC (9.8-11.6)
[2016-11-28] MEDS ORDERED: ENOXAPARIN SODIUM 80 MG/0.8 ML SYRINGE SQ ONE (14:30)
[2016-12-01] MEDS ORDERED: COUM1TAB PO (09:34)
== END 2016-11-28 15:35 | disposition home health service (06) | DRG 395 ==
LOC: PHED 20:04 → PHEDA 11-26 01:17 → N05A 11-26 05:38
PROVIDERS: ADMIT Hospitalist; ATTEND Hospitalist
DX: K43.6 Other and unspecified ventral hernia with obstruction, without gangrene (principal); I48.91 Unspecified atrial fibrillation; I69.320 Aphasia following cerebral infarction; I69.331 Monoplegia of upper limb following cerebral infarction affecting right dominant side; Z79.01 Long term (current) use of anticoagulants; I10 Essential (primary) hypertension; K57.90 Diverticulosis of intestine, part unspecified, without perforation or abscess without bleeding
CPT/HCPCS: 49585; 74176; 74177; 76937; 80053; 80162; 81001; 83605; 83690; 85025; 85610; 85730; 93005; 94770; 96374; 96375; 96376; 99152; J1650; J2270; J2405; J3430; J7030; Q9967

== ENCOUNTER 2016-12-02 07:52 | Inpatient (IN) | payer MEDICARE ==
[~2016-12-02] VITALS: Ht 170.2 cm; Wt 78.0 kg
[~2016-12-02 07:52] MED LIST changes: +BUPIVACAINE HCL PF 0.5% 30 ML VIAL ONE; +BUPIVACAINE/EPINEPHRINE 0.5% PF 10 ML VIAL ONE; -CHOL1CAP6 PO; -CITRTAB7 PO; +COUM1TAB PO; +DIGO0.12 PO; -ENOX40P SQ; +ENOX80P SQ; -FISH1000 PO; +LACTCAP8 PO; -LANO0.2510 PO; +MULTTAB67 PO; +OMEGCAP PO; -PROBCAP PO; -TAB-TAB PO; +VITA100036 PO; -VITA500T10 PO; -WARF-20 PO
[2016-12-02] MEDS ORDERED: INSULIN HUMAN REGULAR 1,000 UNITS/10 ML VIAL SQ PRN (08:15)
[2016-12-02] MEDS ORDERED: METOPROLOL TARTRATE 25 MG TAB PO PRN (08:15)
[2016-12-02] MEDS ORDERED: ceFAZolin 2 GM PREMIX 50 ML IV SCH (08:15)
[2016-12-02] MEDS ORDERED: ACETAMINOPHEN 1000 MG/100 ML VIAL IV SCH (08:15)
[2016-12-02] MEDS ORDERED: CHLORHEXIDINE GLUCONATE 2 % 1 PACK (2 CLOTHS) TOPICAL PRN (08:15)
[2016-12-02] MEDS ORDERED: LACTATED RINGER'S 1000 ML IV PRN (08:15)
[2016-12-02] MEDS ORDERED: SODIUM CHLORID 0.9% 500 ML IV PRN (08:15)
[2016-12-02] MEDS ORDERED: POVIDONE IODINE 5% (ANTISEPSIS KIT) 4 APPLICATIONS EACH NARE PRN (08:15)
[2016-12-02] MEDS ORDERED: BUPIVACAINE LIPOSOME PF 1.3% 20 ML VIAL ONE (08:19)
[2016-12-02 08:58] VITALS: BP 110/63; PULSE 73; RESP 16; TEMP 98.7; O2SAT 95
[2016-12-02] MEDS ORDERED: BUPIVACAINE/EPINEPHRINE 0.5% PF 10 ML VIAL ONE (09:12)
[2016-12-02] MEDS ORDERED: FAMOTIDINE 20 MG/2 ML VIAL ONE (10:13)
[2016-12-02] MEDS ORDERED: ONDANSETRON HCL 4 MG/2 ML VIAL IV PUSH ONE (12:00)
[2016-12-02] MEDS ORDERED: PHENYLEPH/NS 1000 MCG/10 ML SYR IV ONE (12:00)
[2016-12-02] MEDS ORDERED: LACTATED RINGER'S 1000 ML INJ 1,000 ML IV ONE (12:00)
[2016-12-02] MEDS ORDERED: PROPOFOL 200 MG/20 ML AMP IV ONE (12:00)
[2016-12-02] MEDS ORDERED: ePHEDrine/NS 25 MG/5 ML SYR IV ONE (12:00)
[2016-12-02] MEDS ORDERED: NEOSTIGMINE 3 MG/3 ML SYR IV ONE (12:00)
[2016-12-02] MEDS ORDERED: ceFAZolin INJ 1,000 MG VIAL IV ONE (13:37)
[2016-12-02] MEDS ORDERED: HYDROmorphone HCL PCA 6 MG/30 ML IV SCH (14:30)
[2016-12-02] MEDS ORDERED: Post-op Orders (for Pharmacy) MISC XX ONE (14:30)
[2016-12-02] MEDS ORDERED: ONDANSETRON HCL 4 MG/2 ML VIAL IV PRN (14:30)
[2016-12-02] MEDS ORDERED: NALOXONE HCL 0.4 MG/ML AMP IV PRN ×2 (14:30)
[2016-12-02] MEDS ORDERED: SODIUM CHLORIDE 0.9% FLUSH 10 ML FLUSH IV FLUSH PRN (14:30)
[2016-12-02] MEDS ORDERED: diphenhydrAMINE HCL 25 MG CAP PO PRN (14:30)
[2016-12-02] MEDS ORDERED: DO NOT ADM ANY ANTICOAGULANT DRUGS PRN (14:34)
--- NOTE | 2016-12-02 14:56 | PD.OP ---
cc: José Miguel Gomez MD Operative Report Date of Surgery: Dec 02, 2016 Preoperative Diagnosis: (1) Small bowel obstruction (2) Recurrent ventral hernia Postoperative Diagnosis: (1) Small bowel obstruction (2) Recurrent ventral hernia Procedure: Laparoscopic lysis of adhesions >2hr Laparoscopic repair of recurrent ventral hernia and two other ventral hernias with mesh Anesthesia: JAY Surgeon: José Miguel Gomez Stretcher And Drier(s): Nano Kumar MSIII Operation and Findings: EBL: 10 cc Operative findings: The patient had extensive adhesions throughout the entire abdomen with greater than 2 hours of lysis of adhesions to free. There was an approximately 3 x 3 cm recurrent hernia inferior and to the right of the umbilicus with chronically adherent small bowel. There is an approximately 3 x 5 cm ventral hernia defect in the right upper abdomen and a smaller 1 cm defect between these 2 others. A 8 x 10" ventral right ST mesh was placed using the echo deployment system to cover all 3 hernia defects with greater than 5 cm of overlap on all sides. Procedure in detail: The patient was taken to the operating room and placed supine position. Gen. endotracheal anesthesia was induced. The abdomen was prepped and draped in usual sterile fashion and a surgical timeout was performed to verify correct patient procedure and site. Appropriate perioperative antibiotics were administered. In the right upper abdomen 5 mm incision was made after infiltration with local anesthetic and a 5 mm port placed using the direct Optiview technique. The abdomen was insufflated to 15 mmHg which the patient tolerated well. The right upper quadrant had many adhesions. I was able to place another 5 mm port in the far right upper abdomen and take down some of the adhesions. Eventually the adhesions were lysed down the right lateral abdomen. The entire omentum was stuck to the anterior abdominal wall. Carefully sharp and occasionally blunt dissection was used to free the entire mid and lower abdomen from adhesions to the anterior abdominal wall. A significant portion of these adhesions contained small bowel and colon. Eventually a 5 mm port was placed in the left mid abdomen and in the right lower quadrant. Inferior and to the right of the umbilicus a 3 cm fascial defect was noted and the small bowel was chronically adherent and incarcerated inside the hernia. Careful dissection was able to reduce the herniated contents without injury to small bowel. There there was also noted to be an approximately 3 x 5 cm ventral hernia defect in the right upper abdomen and a smaller 1 cm defect between these 2 others. The left lower abdomen a 12 mm GelPort was placed. In order to cover all fascial defects I used an 8 x 10" ventral light ST mesh and the echo deployment system. The mesh was placed through the 12 mm port into the abdomen. A small incision was made in the center of the hernia defects and the catheter brought up through the skin. The structural portion of the system was inflated and the mesh oriented vertically. The Capsure tacker device was used to secure the mesh circumferentially. The structural portion of the system was then removed and the mesh further tacked in place in the midportion. 4 trans-fascial sutures of 0 Vicryl were placed at the superior inferior and lateral portions of the mesh using the core suture passer. There was greater than 5 cm overlap on each edge of the fascial defects. At this point the abdomen was allowed to desufflate and trochars were removed. The 12 mm fascial site was closed with 0 Vicryl suture. The skin was closed with subcuticular 4-0 Monocryl suture as well as Dermabond. An abdominal binder was placed. The patient tolerated the procedure well was extubated and taken to PACU in stable condition. José Miguel Gomez MD Dec 02, 2016 14:55
[2016-12-02] MEDS ORDERED: fentaNYL CITRATE 250 MCG/5 ML AMP ONE (15:00)
[2016-12-02] MEDS ORDERED: MIDAZOLAM HCL 2 MG/2 ML VIAL ONE (15:00)
[2016-12-02] MEDS: LACTATED RINGER'S 1000 ML INJ 1,000 ML IV SCH (15:00)
[2016-12-02] MEDS: KETOROLAC TROMETHAMINE 30 MG/ML (IVP) VIAL IV PUSH SCH (15:15)
[2016-12-02 16:35] VITALS: BP 143/66; PULSE 80; RESP 17; TEMP 96.7; O2SAT 93
[2016-12-02] MEDS: SODIUM CHLORIDE 0.9% FLUSH 10 ML FLUSH IV FLUSH SCH (19:59)
[2016-12-02 20:00] VITALS: BP 144/67; PULSE 76; RESP 20; TEMP 96; O2SAT 93
[2016-12-02] MEDS: ACETAMINOPHEN 1000 MG/100 ML VIAL IV SCH (21:41)
[2016-12-02] MEDS: PCA - TOTAL MG DILAUDID DELIVERED PER SHIFT OTHER SCH (22:00)
[2016-12-03] VITALS: BP 133/63; PULSE 76; RESP 20; TEMP 96.3; O2SAT 96
[2016-12-03] MEDS: KETOROLAC TROMETHAMINE 30 MG/ML (IVP) VIAL IV PUSH SCH ×5 (00:07→23:34)
[2016-12-03] MEDS: LACTATED RINGER'S 1000 ML INJ 1,000 ML IV SCH ×3 (00:07→21:36)
[2016-12-03] MEDS: ACETAMINOPHEN 1000 MG/100 ML VIAL IV SCH ×2 (03:42→08:44)
[2016-12-03 04:00] VITALS: BP 137/60; PULSE 69; RESP 20; TEMP 96.2; O2SAT 95
[2016-12-03] MEDS: PCA - TOTAL MG DILAUDID DELIVERED PER SHIFT OTHER SCH (05:58)
[2016-12-03 08:00] VITALS: BP 138/61; PULSE 65; RESP 16; TEMP 97.4; O2SAT 95
[2016-12-03] MEDS: DIGOXIN 0.125 MG TAB PO SCH (08:44)
[2016-12-03] MEDS: MULTIVITAMIN TAB PO SCH (08:44)
[2016-12-03] MEDS: SODIUM CHLORIDE 0.9% FLUSH 10 ML FLUSH IV FLUSH SCH ×2 (08:45→21:00)
--- NOTE | 2016-12-03 10:55 | HHI.PR ---
Subjective Subjective Notes Pain pretty well controlled and not using small engine specialist much. No nausea, tolerating clears. Objective Vitals/I&O Vital Signs Date Time Temp Pulse Resp B/P Pulse Ox O2 Delivery O2 Flow Rate FiO2 12/03/16 08:00 97.4 65 16 138/61 95 12/02/16 16:00 Nasal Cannula 3 Narrative Exam NAD Abd: soft, mild distention, inc c/d/i, binder in place Leal clear urine A/P Assessment and Plan 76 yo F POD 1 lap extensive VINICIUS and ventral hernia repair with mesh. STable post op. D/c leal. D/c small engine specialist. Start PO meds. Restart coumadin in am. José Miguel Gomez MD Dec 03, 2016 10:55
[2016-12-03 12:00] VITALS: BP 133/56; PULSE 66; RESP 16; TEMP 97.1; O2SAT 95
[2016-12-03] MEDS ORDERED: oxyCODONE/ACETAMINOPHEN 5 MG/325 MG TAB PO PRN ×2 (13:00)
[2016-12-03] MEDS ORDERED: HYDROmorphone HCL PF 1 MG/ML VIAL IV PUSH PRN (13:00)
[2016-12-03] MEDS ORDERED: ENOXAPARIN SODIUM 40 MG/0.4 ML SYRINGE SQ SCH (13:30)
[2016-12-03 15:40] LABS: PROTHROMBIN TIME - PATIENT 10.7 SEC (9.8-11.6)
[2016-12-03 16:00] VITALS: BP 124/56; PULSE 75; RESP 16; TEMP 98.3; O2SAT 97
[2016-12-03] MEDS ORDERED: WARFARIN SOD 3 MG TAB PO SCH ×2 (16:00)
[2016-12-03 20:00] VITALS: BP 123/58; PULSE 72; RESP 18; TEMP 97.6; O2SAT 95
[2016-12-04] VITALS: BP 149/67; PULSE 76; RESP 18; TEMP 96.7; O2SAT 96
[2016-12-04] MEDS: KETOROLAC TROMETHAMINE 30 MG/ML (IVP) VIAL IV PUSH SCH ×2 (06:06→11:28)
[2016-12-04] MEDS: LACTATED RINGER'S 1000 ML INJ 1,000 ML IV SCH (06:07)
[2016-12-04 08:00] VITALS: BP 164/67; PULSE 84; RESP 20; TEMP 98.1; O2SAT 96
[2016-12-04] MEDS: SODIUM CHLORIDE 0.9% FLUSH 10 ML FLUSH IV FLUSH SCH (09:00)
[2016-12-04] MEDS: MULTIVITAMIN TAB PO SCH (09:28)
[2016-12-04] MEDS: DIGOXIN 0.125 MG TAB PO SCH (09:28)
[2016-12-04 10:00] VITALS: BP 164/67; PULSE 84; RESP 20; TEMP 98.1; O2SAT 96
[2016-12-04] MEDS ORDERED: NORC5TAB PO (11:27)
--- NOTE | 2016-12-04 11:34 | HHI.DS ---
Discharge Summary Admission Date Dec 02, 2016 at 14:20 Discharge Date: Dec 04, 2016 Admitting Diagnosis (1) Recurrent ventral hernia Procedures Laparoscopic extensive lysis of adhesions and repair of recurrent ventral hernia with mesh Brief History 76 yo F admitted last week for small bowel obstruction secondary to incarcerated ventral hernia. She improved over a few days and was discharged but I recommended urgent operation to prevent future occurrences. She was planned for the above procedure. PE at Discharge NAD Abd: soft, nondistended, inc c/d/i Hospital Course The patient had moderate pain post op which improved and she required minimal narcotics. She had bowel movts and no nausea or vomiting. She tolerated regular diet. Pt Condition on Discharge: Good Discharge Disposition: Discharge Home Discharge Instructions DIET: Follow Instructions for: As Tolerated, No Restrictions Activities you can perform: See Additionl Instruction Other Activity Instructions: Ok to shower. Avoid strenuous activity. No driving. Follow up Referrals: Surgical - 2 Weeks with José Miguel Gomez MD New Medications: Hydrocodone-Acetaminophen ([place]) 5-325 mg Tab 1-2 TAB PO Q6H PRN PAIN #45 Ref 0 TAB Continued Medications: Cholecalciferol (Vitamin D3) 1,000 Unit Cap 1000 UNITS PO DAILY Nutritional Supplement #1 Ref 0 BOTTLE Digoxin (Digoxin) 0.125 Mg Tab 0.125 MG PO DAILY Regulate Heart Beat #30 Ref 0 TAB Fish Oil-Cholecalciferol ([place]-3 Fish Oil/Vitamin) 1,000-1,000 Mg Cap 1 CAP PO DAILY Nutritional Supplement Ref 0 CAP Lactobacillus Acidophilus (Probiotic) 1 Cap Cap 1 CAP PO DAILY Nutritional Supplement #90 Ref 0 CAP Multiple Vitamin (Multiple Vitamin) 1 Tab 1 TAB PO DAILY Nutritional Supplement Ref 0 TAB Warfarin (Coumadin) 1 Mg Tab Unknown Dose PO DAILY PT STATES SHE DOES NOT KNOW DOSE BECAUSE IT ALTERNATES Prevent Blood Clot #30 Ref 0 TAB Discontinued Medications: Enoxaparin Inj (Lovenox Inj) 80 mg/0.8 ML Syr 70 MG SQ BID Blood Clot Prevention #5 Ref 0 SYRINGE José Miguel Gomez MD Dec 04, 2016 11:34
== END 2016-12-04 12:11 | disposition home or self-care (01) | DRG 355 ==
LOC: HSDC 07:52 → HSDI 14:20 → N07B 16:16
PROVIDERS: ADMIT Surgery; ATTEND Surgery
PROC: 0WUF4JZ Supplement Abdominal Wall with Synthetic Substitute, Percutaneous Endoscopic Approach (ICD-10-PCS; principal; 2016-12-02 10:08)
DX: K43.6 Other and unspecified ventral hernia with obstruction, without gangrene (principal); N73.6 Female pelvic peritoneal adhesions (postinfective)
CPT/HCPCS: 85610; C1781; C9290; J0131; J0690; J1170; J1650; J1885; J2250; J2370; J2405; J2710; J3010; J7120

== ENCOUNTER → 2017-02-12 | Day surgery (SDC) | payer MEDICARE ==
[~2017-02-12] MED LIST changes: +ACETAMINOPHEN 1000 MG/100 ML 100 ML IV ONE; +BUPIVACAINE HCL PF 0.25% 30 ML VIAL INFIL ONE; -BUPIVACAINE HCL PF 0.5% 30 ML VIAL ONE; -BUPIVACAINE/EPINEPHRINE 0.5% PF 10 ML VIAL ONE; -ENOX80P SQ; +MORPHINE SULFATE 4 MG/ML INJ ONE; +NORC5TAB PO; +ONDANSETRON HCL 4 MG/2 ML VIAL IV PUSH ONE; +PROPOFOL 100 MG/10 ML INJ IV ONE; +ceFAZolin 2 GM PREMIX 50 ML ONE
--- NOTE | 2017-02-12 11:09 | TN ---
cc: AMITA BEDOYA MD DATE OF SURGERY: 02/12/2017 PREOPERATIVE DIAGNOSIS Left axillary mass. POSTOPERATIVE DIAGNOSIS Left axillary lymphadenitis. PROCEDURE Excision left axillary lymph nodes. SURGEON Dr. Amita Bedoya. NURSE QUALITY Staff. ANESTHESIA General anesthesia. SPECIMENS REMOVED Left axillary lymph nodes for culture and permanent specimen. ESTIMATED BLOOD LOSS 10 ccs. COMPLICATIONS None apparent. OPERATIVE FINDINGS The patient had multiple necrotic infected lymph nodes in the left axilla with some purulent drainage. All infected material was removed. PROCEDURE IN DETAIL The patient was taken to the operating room, placed in supine position. General anesthesia was induced. The left axilla was prepped and draped in usual sterile fashion. A surgical time-out was performed to verify correct patient, procedure and site. Local anesthetic was injected in the skin and subcutaneous tissue and left axilla at the inferior hairline and a curvilinear incision made. Dissection was carried out through subcutaneous tissue with electrocautery. The left axillary mass was encountered fairly quickly. Careful dissection circumferentially around the left axillary mass revealed this to be inflamed lymph node. After further dissection there was some purulent drainage from this mass and it was apparent that there were multiple necrotic lymph nodes present and adherent. All the necrotic lymph nodes were removed, probably 2 or 3 nodes. One or two normal but enlarged lymph nodes in the area were also removed. A culture of the purulent fluid was sent as well as a tissue culture. The remainder of the specimen was sent for permanent pathology. There was hemostasis in the operative field, no further infected material, there was no further purulent fluid. The cavity was copiously irrigated. It was then closed in deep dermal 3-0 Vicryl and subcuticular 4-0 Monocryl sutures. Mastisol and Steri-Strips were applied. The patient tolerated the procedure well, was extubated and taken to PACU in stable condition. Amita Bedoya MD JPD/TLL /10:48 AM /10:57 AM
== END | disposition home or self-care (01) ==
LOC: ESDC 08:15
PROVIDERS: ATTEND Surgery
DX: R59.0 Localized enlarged lymph nodes (principal)
CPT/HCPCS: 01610; 38525; 87015; 87070; 87102; 87116; 87205; 87206; 88305; 88312; J0131; J0690; J2270; J2405; J3010; 88307